=== PATIENT | female | born 1970 | race Hispanic/Latino ===

== ENCOUNTER → 2019-10-07 | Day surgery (SDC) | payer OTHER ==
[2019-10-05 09:08] LABS: BASOPHILS % 0.8 % (0.0-1.0); EOSINOPHILS # (AUTO) 0.1 (0.0-0.4); EOSINOPHILS % 1.5 % (0.0-6.0); HEMATOCRIT 44.7 % (34.2-44.1); HEMOGLOBIN 15.4 g/dL (12.0-16.0); LYMPHOCYTES # (AUTO) 1.9 (1.0-3.2); LYMPHOCYTES % 36.5 % (18.0-39.1); MEAN CORPUSCULAR HEMOGLOBIN 31.5 pg (28-32); MEAN CORPUSCULAR HGB CONC 34.5 g/dL (31-35); MEAN CORPUSCULAR VOLUME 91.4 fL (81-99); MONOCYTES # (AUTO) 0.4 (0.2-0.8); MONOCYTES % 7.9 % (4.4-11.3); NEUTROPHILS # (AUTO) 2.8 (2.1-6.9); NEUTROPHILS % 53.1 % (38.7-80.0); PLATELET COUNT 261 x10e3/uL (140-360); RED BLOOD COUNT 4.89 x10e6/uL (3.6-5.1); RED CELL DISTRIBUTION WIDTH 12.5 % (11.7-14.4)
[2019-10-05 09:27] LABS: ANION GAP 11.2 mmol/L (8-16); BLOOD UREA NITROGEN 11 mg/dL (7-26); BUN/CREATININE RATIO 14 (6-25); CALCIUM 9.6 mg/dL (8.4-10.2); CARBON DIOXIDE 30 mmol/L (22-29); CHLORIDE 100 mmol/L (98-107); CREATININE, SERUM 0.78 mg/dL (0.57-1.11); EST GLOMERULAR FILTRATION RATE > 60 ML/MIN (60-); GLUCOSE 98 mg/dL (74-118); POTASSIUM 3.2 mmol/L (3.5-5.1); SODIUM 138 mmol/L (136-145)
--- NOTE | 2019-10-05 09:27 | Diagnostic Imaging Report ---
EXAMINATION: CHEST 2 VIEWS INDICATION: COMPARISON: None FINDINGS: LINES/TUBES:None LUNGS:The lungs are well-inflated. No focal consolidation or pulmonary edema. PLEURA:No pleural effusion or pneumothorax. MEDIASTINUM:The cardiomediastinal silhouette appears normal in size and shape. BONES/SOFT TISSUES:No acute osseous injury. ABDOMEN:No free air under the diaphragm. Status post cholecystectomy. IMPRESSION: No focal pneumonia or pulmonary edema. Signed by: Linsey Oviedo MD on 10/05/2019 9:24 AM
[~2019-10-07] MED LIST: ACETAMINOPHEN 1000 MG/100 ML IV ONE; BUPIVACAINE HCL 0.5% INJ 30 ML VIAL INJ ONE; CEFAZOLIN SOD 1 GM/NS 50ML 100 ML IV ONE; DEXAMETHASONE SOD PHOS INJ 4 MG/ML VIAL ONE; FENTANYL CITRATE/PF 100MCG/2 ML INJ ONE; KETOROLAC TROMETHAMINE 30 MG/ML VIAL ONE; LIDOCAINE HCL 2% LOCAL INJ 5 ML SDV VIAL INJ ONE; MIDAZOLAM HCL 2 MG/2 ML VIAL ONE; NEOSTIGMINE 1 MG/ML 10ML VIAL ONE; ONDANSETRON HCL INJ 2MG/ML 2ML 2 MG/ML VIAL ONE; PROPOFOL IV EMULSION 10 MG/ML 20 ML VIAL ONE; PROTONIX40 M2; SEVOFLURANE INHAL SOLN 250 ML PEN BTL ONE; Z.0.BENTYL20 MG PO; Z.0.LOSARTAN POTASS5 PO; Z.0.METOPROLOL TART2 PO; Z.0.NORCO 10-325 T1 PO; [UNRECOGNIZED DRUG - CODE] PO
--- OUTSIDE RECORDS SUMMARY | 2019-10-07 05:07 | XMS REPORT ---
Author [facility] Address Unknown Phone Unavailable Care Team Providers Care Clipper And Turner Name Role Phone KYMBERLY MILLER Unavailable Unavailable Problems This patient has no known problems. Allergies, Adverse Reactions, Alerts This patient has no known allergies or adverse reactions. Medications This patient has no known medications. Results Test Description Test Time Test Comments Text Results Atomic Results Result Comments CHEST 2 VIEWS 2019-10-05 09:23:00 [place] [address] Patient Name: ROME BRADFORD MR #: [id number] : 1970 Age/Sex: 49/F Req #: [id number] [facility] Physician: Ordered by: KYMBERLY MILLER DPM Report #: [id number] Location: OR Room/Bed: Procedure: [id number] DX/CHEST 2 VIEWS Exam Date: 10/05/19 Exam Time: 0900 REPORT STATUS: Signed EXAMINATION: CHEST 2 VIEWS INDICATION: COMPARISON: None FINDINGS: LINES/TUBES:None LUNGS:The lungs are well-inflated. No focal consolidation or pulmonary edema. PLEURA:No pleural effusion or pneumothorax. MEDIASTINUM:The cardiomediastinal silhouette appears normal in size and shape. BONES/SOFT TISSUES:No acute osseous injury. ABDOMEN:No free air under the diaphragm. Status post cholecystectomy. IMPRESSION: No focal pneumonia or pulmonary edema. Signed by: Whitney Oviedo MD on 10/05/2019 9:24 AM Dictated By: WHITNEY OVIEDO MD 3 Transcribed By: KIRA on 10/05/19923 COPY TO: KYMBERLY MILLER DPM
[2019-10-07 05:59] LABS: ANION GAP 12.1 mmol/L (8-16); BLOOD UREA NITROGEN 12 mg/dL (7-26); BUN/CREATININE RATIO 16 (6-25); CALCIUM 9.4 mg/dL (8.4-10.2); CARBON DIOXIDE 28 mmol/L (22-29); CHLORIDE 102 mmol/L (98-107); CREATININE, SERUM 0.77 mg/dL (0.57-1.11); EST GLOMERULAR FILTRATION RATE > 60 ML/MIN (60-); GLUCOSE 99 mg/dL (74-118); POTASSIUM 3.1 mmol/L (3.5-5.1); SODIUM 139 mmol/L (136-145)
[2019-10-07 10:23] VITALS: BP 151/93
--- NOTE | 2019-10-07 17:54 | Operative Report ---
DATE OF PROCEDURE: 10/07/2019 SURGEON: Blaise Melo DPM ROOM NUMBER: [facility]. PREOPERATIVE DIAGNOSIS: Hallux rigidus with failed implant, 1st metatarsophalangeal joint, right foot. POSTOPERATIVE DIAGNOSIS: Hallux rigidus with failed implant, 1st metatarsophalangeal joint, right foot. TITLE OF OPERATION: Take down of partial fusion with curettage, removal of old implanted material and reimplantation with Arthrosurface HemiCAP implant 1st metatarsophalangeal joint of the right foot. PROCEDURE IN DETAIL: The patient was taken to the operating room in a mildly sedated state, placed on the operating table in supine position. Following induction of general anesthetic, the right lower extremity was elevated to 60 degrees to exsanguinate before inflating the pneumatic thigh tourniquet to 350 mmHg to create good hemostasis. Right lower extremity was placed upon the operating table prior to following procedure. Procedure #1 is the takedown of the 1st metatarsophalangeal joint, partial fusion and removal of implanted material. An approximate 6 cm dorsal linear incision was made across the dorsal medial aspect of 1st metatarsophalangeal joint of the right foot. Incision was deepened via sharp and blunt dissection to the level of dorsal capsular structure. Care was taken to identify and retract all vital structures encountered. The head of the first metatarsal was delivered in the surgical site and it was noted that there was no motion between the head of the 1st metatarsal and the base of the proximal phalanx. There was indeed at least a partial auto fusion that had occurred without internal fixation. An osteotome was used to facilitate entry into the fibrous joint area. Once this was entered, it was noted that the base of the proximal phalanx was void of any affective articular cartilage, the head of the first metatarsal was as well. The internal canal of the 1st met head was showing a significant amount of fibrous tissue along with cancellous bone. Curettage and minimal resection were performed in order to get down to a healthy surface for reimplantation. Similarly, the base of the proximal phalanx on the right foot was debrided of all fibrous and nonviable cartilaginous surface. The bone itself was then remodeled in order to facilitate articulation with the HemiCAP implant. Once the cancellous bone was remodeled in the appropriate shape, a human tissue allograft with an appropriate sheeting was applied across the now exposed cancellous bone, thus creating a flicker surface for articulation with the HemiCAP implant. The area had been irrigated with copious amounts of sterile saline solution utilizing the appropriate jig and drill. The HemiCAP stem was installed and the implant appropriately applied after appropriate sizer and remodeling of the remaining dorsal medial and lateral excess bone. This having been accomplished and excellent alignment of the head with the base of the proximal phalanx having been accomplished, the new implant was tamped in place under fluoroscopy. Excellent alignment and fixation were noted. The area had been irrigated prior to the implantation of the cellular bone matrix to facilitate healing. The removal of the nonviable base of the proximal phalanx head affectively shorten the bone thus remedying the rigidus limitation to motion that had been so painful to the patient preoperatively. With this having been accomplished and the area appropriately closed with repair of all deep tissues, all superficial bleeders were electrocoagulated. The skin was closed with a combination of 3-0 Vicryl, 4-0 nylon. The areas of surgery were blocked with a combination of 0.5 Marcaine, Decadron [place] and the appropriate mildly compressive dressings were applied and the patient left the operating room, vital signs stable in apparent satisfactory condition, having tolerated both anesthetic and procedure very well. RYLEY Treviño/KEYANA /[id number]
== END | disposition home or self-care (01) ==
LOC: OR 05:00
PROVIDERS: ATTEND Podiatrist Foot Surgery
DX: M20.22 Hallux rigidus, left foot (principal); M19.071 Primary osteoarthritis, right ankle and foot; M79.671 Pain in right foot; Z01.810 Encounter for preprocedural cardiovascular examination; Z01.812 Encounter for preprocedural laboratory examination; Z01.811 Encounter for preprocedural respiratory examination; I10 Essential (primary) hypertension; D18.00 Hemangioma unspecified site; Z88.5 Allergy status to narcotic agent; Z91.041 Radiographic dye allergy status; T84.098A Other mechanical complication of other internal joint prosthesis, initial encounter
CPT/HCPCS: 20680; 28750; 36415 ×2; 71046; 80048 ×2; 85025; 93005; J0131; J0690; J1100; J1885; J2001; J2250; J2405; J2704; J2710; J3010